=== PATIENT | female | born 1995 | race African-American/Black ===

== ENCOUNTER 2022-01-11 03:10 | Inpatient (IN) ==
[2022-01-11] MEDS ORDERED: miSOPROStoL 200 MCG TABLET RECTAL PRN (03:20)
[2022-01-11] MEDS ORDERED: OXYTOCIN/LR 20 UNIT/1,000 ML BAG IV ONE ×2 (03:20→20:36)
[2022-01-11] MEDS ORDERED: METHYLERGONOVINE 0.2 MG/1 ML AMP IM PRN (03:20)
[2022-01-11] MEDS ORDERED: BUTORPHANOL 2 MG/ML VIAL IV PRN (03:20)
[2022-01-11] MEDS ORDERED: MEPERIDINE 50 MG/1 ML VIAL IV PRN (03:20)
[2022-01-11] MEDS ORDERED: TRANEXAMIC ACID 1,000 MG in SODIUM CHLORIDE 0.9% 100 ML IV PRN (03:20)
[2022-01-11] MEDS ORDERED: LACTATED RINGERS 500 ML IV PRN (03:20)
[2022-01-11] MEDS ORDERED: ONDANSETRON 4 MG/2 ML VIAL IV PRN (03:20)
[2022-01-11] MEDS ORDERED: LACTATED RINGERS 250 ML IV ONE (03:20)
[2022-01-11] MEDS ORDERED: BUTORPHANOL 1 MG/ML VIAL IV PRN (03:20)
[2022-01-11] MEDS ORDERED: CARBOPROST TROMETHAMINE 250 MCG/ML AMP IM PRN (03:20)
[2022-01-11] MEDS ORDERED: OXYTOCIN/LR 30 UNIT/1,000 ML BAG IV ONE (03:24)
[2022-01-11] MEDS ORDERED: OXYTOCIN/LR 20 UNIT/1,000 ML BAG IV SCH (03:30)
[2022-01-11] MEDS: LACTATED RINGERS 1,000 ML IV SCH ×5 (04:00→15:41)
[2022-01-11] MEDS ORDERED: NIFEdipine 10 MG CAPSULE PO ONE ×2 (04:15→04:54)
[2022-01-11 04:21] LABS: Basophils % 0.4 % (0.0-0.8); Eosinophils # 0.1 10*3/uL (0.0-0.87); Immature Granulocytes % 1.9 %; Lymphocytes # 2.5 10*3/uL (1.4-4.0); Lymphocytes % 23.2 % (21.3-54.2); Mean Corpuscular Volume 89.9 FL (87-102); Mean Platelet Volume 10.6 FL (9.6-12.0); Monocytes # 0.8 10*3/uL (0.11-0.8); Monocytes % 7.4 % (1.7-12.7); Neutrophils % 66.1 % (38.7-73.9); Platelet Count 342 T/CUMM (130-400); Red Blood Count 2.78 MC/CUMM (3.8-5.5); Red Cell Distribution Width 14.7 % (9.3-17.3); White Blood Count 10.7 T/CUMM (4-12)
[2022-01-11 04:33] LABS: INR 0.9; PT Patient Result 9.8 SECS (10.1-12.1); Partial Thromboplastin Time 24.1 SECS (23.7-32.9)
[2022-01-11 04:40] LABS: Albumin 2.6 G/DL (3.4-5.0); Bilirubin,Total 0.4 MG/DL (0.20-1.00); Calcium 8.4 MG/DL (8.5-10.1); Osmolality,Calculated 275.4 MOS/KG (273-304); Potassium 3.2 MMOL/L (3.5-5.1); Total Protein 6.8 G/DL (6.4-8.2)
[2022-01-11] MEDS ORDERED: SODIUM CHLORIDE 0.9% 1,000 ML IV PRN (05:31)
[2022-01-11] MEDS ORDERED: atenoloL 25 MG TABLET PO ONE (06:03)
[2022-01-11 06:11] LABS: RPR Confirm - Less than 1 yr REACTIVE (Nonreactive)
[2022-01-11 06:51] LABS: Bacteria,Urine Occasional /HPF (Few); RBC,Urine 1 /HPF (0-4); Squamous Epithelial Cell,Urine Occasional /HPF (0-10)
[2022-01-11 06:53] LABS: Glucose,Urine (UA) Negative (Negative); Protein,Urine Negative (Negative); Urine Appearance Clear (Clear); Urine Color Yellow (Yellow); Urine pH 6.5 (4.5-8.0)
[2022-01-11 06:54] LABS: Bilirubin,Urine Negative (Negative); Blood, Urine Small mg/dL (Negative); Ketones,Urine 40 mg/dL (Negative); Nitrite,Urine Negative (Negative)
[2022-01-11] MEDS: POTASSIUM CHLORIDE RIDER 10 MEQ/100 ML PREMIX IV PRN ×4 (06:58→12:08)
[2022-01-11 07:20] LABS: Barbiturates Screen,Urine Negative (Negative); Benzodiazepines Screen,Urine Negative (Negative); Cannabinoid Screen,Urine Negative (Negative); Opiate Screen,Urine Negative (Negative); Phencyclidine Screen,Urine Negative (Negative)
[2022-01-11] MEDS ORDERED: ACETAMINOPHEN 500 MG TABLET PO ONE (10:06)
[2022-01-11] MEDS ORDERED: CITRIC ACID/SODIUM CITRATE 30 ML UDCUP PO ONE (11:10)
[2022-01-11] MEDS ORDERED: NALOXONE 0.4 MG/ML VIAL IV PRN (11:10)
[2022-01-11] MEDS ORDERED: diphenhydrAMINE 50 MG/1 ML VIAL IV PRN ×2 (11:10)
[2022-01-11] MEDS ORDERED: hydrOXYzine HCL 25 MG/1 ML VIAL IM PRN (11:10)
[2022-01-11] MEDS ORDERED: PROMETHAZINE 25 MG/1 ML VIAL IM ONE (11:10)
[2022-01-11] MEDS ORDERED: FAMOTIDINE 20 MG/2 ML VIAL IV ONE (11:10)
[2022-01-11] MEDS ORDERED: ePHEDrine 50 MG/ML VIAL IV PRN (11:10)
[2022-01-11] MEDS ORDERED: fentaNYL 2 MCG/ROPIV 0.2% EPID 100 ML EPIDURAL SCH (11:30)
[2022-01-11 13:53] LABS: Bilirubin,Urine Negative (Negative); Blood, Urine Negative (Negative); Glucose,Urine (UA) Negative (Negative); Ketones,Urine Trace mg/dL (Negative); Nitrite,Urine Negative (Negative); Protein,Urine Negative (Negative); Urine Appearance Clear (Clear); Urine Color Yellow (Yellow); Urine Specific Gravity 1.015 (1.001-1.035); Urine Urobilinogen 0.2 eU/dL (<2.0); Urine pH 7.5 (4.5-8.0)
[2022-01-11 13:57] LABS: Mucus,Urine Occasional /LPF (Occasional); RBC,Urine <1 /HPF (0-4)
[2022-01-11] MEDS ORDERED: miSOPROStoL 200 MCG TABLET ONE (16:40)
[2022-01-11] MEDS ORDERED: TRANEXAMIC ACID 1,000 MG/10 ML VIAL ONE (16:40)
[2022-01-11] MEDS ORDERED: SODIUM CHLORIDE 0.9% 0 ML IV ONE (16:41)
[2022-01-11] MEDS ORDERED: CARBOPROST TROMETHAMINE 250 MCG/ML AMP IM ONE (16:41)
[2022-01-11] MEDS ORDERED: diphenhydrAMINE 50 MG/1 ML VIAL IV ONE (18:13)
[2022-01-11 19:03] LABS: Cord Venous Blood HCO3 22.3 MMOL/L; Cord Venous Blood PCO2 49.7 MMHG; Cord Venous Blood PO2 27.2
[2022-01-11] MEDS ORDERED: BENZOCAINE 20%/MENTHOL 0.5% SPRAY 56 GM CAN TOP PRN (20:36)
[2022-01-11] MEDS ORDERED: DIPH/TET/ACEL PERT BOOSTER VACCINE 0.5 ML VIAL IM ONE (20:36)
[2022-01-11] MEDS ORDERED: HYDROCORTISONE 2.5% RECTAL CREAM 30 GM TUBE TOP PRN (20:36)
[2022-01-11] MEDS ORDERED: ACETAMINOPHEN 325 MG TABLET PO PRN (20:36)
[2022-01-11] MEDS ORDERED: BISACODYL 10 MG SUPP RECTAL PRN (20:36)
[2022-01-11] MEDS ORDERED: MEASLES/MUMPS/RUBELLA VACCINE 0.5 ML VIAL SUBCUT ONE (20:36)
[2022-01-11] MEDS ORDERED: RHO(D) IMMUNE GLOBULIN 300 MCG SYRINGE IM ONE (20:36)
[2022-01-11] MEDS ORDERED: WITCH HAZEL PADS 100/JAR TOP PRN (20:36)
[2022-01-11] MEDS ORDERED: oxyCODONE/ACETAMINOPHEN 5-325 MG TABLET PO PRN (20:36)
[2022-01-11] MEDS ORDERED: LANOLIN 50% CREAM 0.3 OZ TUBE TOP PRN (20:36)
[2022-01-11] MEDS: DOCUSATE SODIUM 100 MG CAPSULE PO SCH (20:47)
[2022-01-11] MEDS: IBUPROFEN 800 MG TABLET PO PRN (22:57)
[2022-01-12 05:02] LABS: Basophils % 0.2 % (0.0-0.8); Eosinophils # 0.1 10*3/uL (0.0-0.87); Eosinophils % 0.4 % (0.00-10.9); Hematocrit 27.1 VOL% (35.7-47.0); Hemoglobin 8.5 GM/DL (12.0-16.0); Immature Granulocytes % 0.9 %; Immature Granulocytes Absolute 0.12 #; Lymphocytes % 15.3 % (21.3-54.2); Mean Corpuscular HGB Conc 31.4 GM/DL (32-36); Mean Corpuscular Volume 91.2 FL (87-102); Mean Platelet Volume 10.4 FL (9.6-12.0); Monocytes # 0.9 10*3/uL (0.11-0.8); Monocytes % 6.6 % (1.7-12.7); NRBC # 0.04 10*3/uL; Neutrophils % 76.6 % (38.7-73.9); Platelet Count 310 T/CUMM (130-400); Red Blood Count 2.97 MC/CUMM (3.8-5.5); Red Cell Distribution Width 14.8 % (9.3-17.3); White Blood Count 13.1 T/CUMM (4-12)
[2022-01-12] MEDS: FERROUS SULFATE 325 MG TABLET PO SCH ×2 (08:57→21:02)
[2022-01-12] MEDS: DOCUSATE SODIUM 100 MG CAPSULE PO SCH ×2 (08:57→21:02)
[2022-01-12] MEDS: IBUPROFEN 800 MG TABLET PO PRN (12:14)
[2022-01-12] MEDS: oxyCODONE/ACETAMINOPHEN 5-325 MG TABLET PO PRN (14:22)
[2022-01-13] MEDS: oxyCODONE/ACETAMINOPHEN 5-325 MG TABLET PO PRN (01:17)
[2022-01-13] MEDS: IBUPROFEN 800 MG TABLET PO PRN (01:23)
[2022-01-13] MEDS ORDERED: MULTIVITAMIN (PRENATAL) TABLET PO SCH (09:00)
[2022-01-13] MEDS: FERROUS SULFATE 325 MG TABLET PO SCH (09:27)
[2022-01-13] MEDS: DOCUSATE SODIUM 100 MG CAPSULE PO SCH (09:27)
[2022-01-13 15:00] VITALS: BP 160/78
== END 2022-01-13 12:53 | disposition home or self-care (01) | DRG 560 ==
LOC: N.LDOUT 03:10 → N.LD 03:16 → N.OB 21:45
PROVIDERS: ADMIT Obstetrics & Gynecology; ATTEND Obstetrics & Gynecology